=== PATIENT | female | born 1940 | race Caucasian/White ===

== ENCOUNTER 2016-08-29 19:18 | Inpatient (IN) | payer MEDICARE, MEDICAID ==
[2016-08-29] MEDS ORDERED: BONIVA150 M1 PO (19:52)
[2016-08-29] MEDS ORDERED: POTASSIUM CHLO20 ME3 PO (19:57)
[2016-08-29] MEDS ORDERED: ARMOUR THYROID PO (19:59)
[2016-08-29] MEDS ORDERED: BUPROPION HCL150 M3 PO (20:00)
[2016-08-29] MEDS ORDERED: COZAAR50 M1 PO (20:02)
[2016-08-29] MEDS ORDERED: VITAMIN D31000 UNI3 PO (20:02)
[2016-08-29] MEDS ORDERED: ZOFRAN4 M2 PO (20:05)
[2016-08-29] MEDS ORDERED: COREG25 M1 PO (20:07)
[2016-08-29] MEDS ORDERED: ULTRACET TABLE1 EACH (20:07)
[2016-08-29] MEDS ORDERED: CELEBREX200 M1 PO (20:08)
[2016-08-29] MEDS ORDERED: CLARITIN10 M6 PO (20:09)
[2016-08-29] MEDS ORDERED: THEOPHYLLINE A300 M1 PO (20:09)
[2016-08-30 05:41] LABS: BASO % 0.1 % (0-2); EOS % 0.5 % (0-7); HCT-HEMATOCRIT 40.9 % (34.0-49.0); HGB-HEMOGLOBIN 14.1 gm/dl (12.0-15.5); IMMATURE GRANULOCYTES ABSOLUTE 0.01 tho/cmm (0-0.03); IMMATURE GRANULOCYTES PERCENT 0.1 % (0-0.3); LYMPH % 11.4 % (20-45); LYMPH ABSOLUTE COUNT 0.9 tho/cmm (0.8-4.5); MCH (MEAN CORPUSCULAR HGB) 31.8 pg (28.0-32.0); MCHC MEAN CORPUSCULAR HGB CONC 34.5 % (32.0-36.0); MCV (MEAN CELL VOLUME) 92.1 fl (82.0-96.0); MEAN PLATELET VOLUME 10.5 cmc (9.4-12.4); MONO % 3.8 % (0-12); MONOCYTE ABSOLUTE COUNT 0.3 tho/cmm (0.0-1.2); NEUTROPHIL ABSOLUTE COUNT 6.9 tho/cmm (1.6-8.0); NEUTROPHIL-AUTOMATED 6.9 tho/cmm (1.6-8.0); NEUTROPHILS % 84.1 % (40-80); PLATELET COUNT 229 tho/cmm (150-450); RED BLOOD COUNT 4.44 mil/cmm (4.00-5.20); RED CELL DISTRIBUTION WIDTH 13.2 % (12.4-16.4); WHITE BLOOD COUNT 8.3 tho/cmm (4.0-10.0)
[2016-08-30 05:56] LABS: ALB/GLOB RATIO 1.1 (0.8-2.0); ALBUMIN 3.3 g/dl (3.5-5.0); ALKALINE PHOSPHATASE 63 U/L (33-138); ALT/SGPT 11 U/L (12-78); ANION GAP 10 mmol/L (0-20); AST/SGOT 13 U/L (10-40); BILIRUBIN,TOTAL 0.8 mg/dl (0-1.5); BLOOD UREA NITROGEN 9 mg/dl (6-24); CALCIUM 8.5 mg/dl (8.5-10.5); CARBON DIOXIDE-VENOUS 32 mmol/L (22-32); CHLORIDE 103 mmol/l (96-110); CREATININE 0.79 mg/dl (0.50-1.10); GLUCOSE 126 mg/dL (70-110); POTASSIUM 3.4 mmol/L (3.7-5.1); SODIUM 142 mmol/L (135-145); eGFR VALUE FOR BLACK 83 mL/Min
[2016-08-30] MEDS ORDERED: ARICEPT10 M2 PO (10:21)
[2016-08-30] MEDS ORDERED: COMBIVENT RESPIM4 G1 INH (10:23)
[2016-08-30] MEDS ORDERED: COMBIVENT INH (12:59)
--- NOTE | 2016-09-03 10:23 | NUR ---
PT SEEN WITH DR CARRILLO. CALLED [facility], INFO THEN FAXED TO THEM INCLUDING DNR/DNI FORM. SPOKE WITH DAUGHTER IN WAITING ROOM. SHE WILL BE AVAILABLE TO SIGN HOPPICE FORMS. HER CONTACT INFO GIVEN TO HOSPICE. DTR WAS TEARFUL, SPOKE OF HER BROKEN RELATIONSHIP WITH HER MOTHER. SPOKE OF HER FATHER IN LAW RECENT . STATES SHE WILL NEED COUNSELING AFTER HER MOTHER IS SETTLED AT THE FACILITY WITH HOSPICE. ENCOURAGED HER TO PURSUE COUNSELING. SUPPORT GIVEN.
== END 2016-09-03 12:15 | DRG 54 ==
LOC: 5EB 19:18
PROVIDERS: Internal Medicine; ADMIT Internal Medicine
DX: C79.31 Secondary malignant neoplasm of brain (principal); G93.6 Cerebral edema; Z51.5 Encounter for palliative care; Z66 Do not resuscitate; G93.40 Encephalopathy, unspecified; I50.30 Unspecified diastolic (congestive) heart failure; I42.9 Cardiomyopathy, unspecified; R47.01 Aphasia; I11.0 Hypertensive heart disease with heart failure; F03.90 Unspecified dementia, unspecified severity, without behavioral disturbance, psychotic disturbance, mood disturbance, and anxiety; E87.6 Hypokalemia; E03.9 Hypothyroidism, unspecified; J44.9 Chronic obstructive pulmonary disease, unspecified; M19.90 Unspecified osteoarthritis, unspecified site; F32.9 Major depressive disorder, single episode, unspecified; F17.210 Nicotine dependence, cigarettes, uncomplicated; Z91.19 Patient's noncompliance with other medical treatment and regimen
CPT/HCPCS: J1630; J3480; Q9967